=== PATIENT | male | born 1935 | race Caucasian/White ===

== ENCOUNTER → 2020-10-02 11:53 | Outpatient (BNVA) | payer MEDICARE, OTHER, SELFPAY | PROVIDERS: Visit Provider Nurse Practitioner Family | DX: R06.02 Shortness of breath (principal); J44.0 Chronic obstructive pulmonary disease with (acute) lower respiratory infection; J18.9 Pneumonia, unspecified organism | CPT/HCPCS: 71046; 71047 ==